=== PATIENT | female | born 1975 | race Caucasian/White ===

== ENCOUNTER → 2017-09-15 | Outpatient (CLI) | payer OTHER ==
[~2017-09-15] MED LIST: LIDOCAINE 1%, 20ML ONE
== END ==
LOC: RAD 12:29
PROVIDERS: ATTEND Otolaryngology
DX: E04.1 Nontoxic single thyroid nodule (principal)
CPT/HCPCS: 76942; 88112; 88173; J3490

== ENCOUNTER → 2017-10-06 | Outpatient (CLI) | payer OTHER | END | disposition home or self-care (01) | LOC: RAD 13:16 | PROVIDERS: ATTEND Family Medicine | DX: M25.521 Pain in right elbow (principal) ==

== ENCOUNTER → 2019-05-21 | Outpatient (CLI) | payer OTHER | END | disposition home or self-care (01) | LOC: RAD 13:55 | PROVIDERS: ATTEND Family Medicine | DX: S13.4XXA Sprain of ligaments of cervical spine, initial encounter (principal); M50.320 Other cervical disc degeneration, mid-cervical region, unspecified level; M48.02 Spinal stenosis, cervical region | CPT/HCPCS: 72050 ==

== ENCOUNTER → 2019-08-20 | Outpatient (CLI) | payer OTHER | END | disposition home or self-care (01) | LOC: RAD 16:32 | PROVIDERS: ATTEND Family Medicine | DX: M51.36 Other intervertebral disc degeneration, lumbar region (principal) | CPT/HCPCS: 72110 ==

== ENCOUNTER → 2020-06-09 | Outpatient (CLI) | payer OTHER | END | disposition home or self-care (01) | LOC: RAD 11:27 | PROVIDERS: ATTEND Family Medicine | DX: M25.851 Other specified joint disorders, right hip (principal) ==

== ENCOUNTER → 2020-12-22 | Outpatient (CLI) | payer OTHER | END | disposition home or self-care (01) | LOC: RAD 10:03 | PROVIDERS: ATTEND Family Medicine | DX: E04.1 Nontoxic single thyroid nodule (principal) | CPT/HCPCS: 76536 ==